=== PATIENT | male | born 2005 | race Caucasian/White ===

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

== ENCOUNTER 2024-04-28 15:06 | Emergency (ER) | payer MEDICARE, OTHER, SELFPAY ==
[2024-04-28 15:25] VITALS: BP 127/72; PULSE 140; RESP 18; TEMP 36.8; O2SAT 100; BMI 27.4
--- NOTE | 2024-04-28 15:47 | ED_ITS ---
Discharge Plan Disposition Patient Disposition: Home, Self-Care Condition: Good Prescriptions Prescriptions: No Action lisinopril 10 mg tablet See Rx Instructions .ROUTE .COMPLEX Qty: 90 3RF Dose Instruction: TAKE ONE TABLET BY MOUTH EVERY DAY Rx Instructions: TAKE ONE TABLET BY MOUTH EVERY DAY cyclobenzaprine 10 mg tablet See Rx Instructions .ROUTE .COMPLEX Qty: 30 2RF Dose Instruction: TAKE ONE TABLET BY MOUTH EVERY NIGHT AT BEDTIME MAY CAUSE DROWSINESS Rx Instructions: TAKE ONE TABLET BY MOUTH EVERY NIGHT AT BEDTIME MAY CAUSE DROWSINESS Referrals Follow up/Referrals: Makenzie Morales PA [Primary Care Provider] - See instructions Activity Restrictions/Add. Instructions Additional Instructions/Restrictions: You were evaluated in the emergency department today. It is important to note that your heart rate is still very elevated at this time. We recommended slowing the rate down and repeating an EKG to determine underlying rhythm. You elected to go home to see if it improves at home once you no longer anxious, so it is very important that you keep a close eye on your heart rate to make sure that it does not stay elevated. If it stays elevated, please return to the emergency department right away. Please follow-up closely with your primary care provider over the next 48 to 72 hours. Return to the emergency department for new or worsening symptoms, such as chest pain, shortness of breath, or other concerns. Clinical Impressions Clinical Impression: Muscular dystrophy, Leg swelling, Tachycardia Instructions Patient Instructions: DI for Dependent Edema, DI for Tachycardia Print Language Print Language: Hebrew Discharge ED Provider: Laura Acuña [facility] General Chief complaint: Skin/Abscess/Foreign Body Stated complaint: right leg redness/swelling, no accident Mode of Arrival: Ambulatory Source of Information: Patient and Parent(s) Limitations: No Limitations Time Seen by Provider: 04/28/24 15:47 Description of Symptoms (Recalled from Triage Doc. by RN): PATIENT C/O RASH TO RIGHT LEG X 2 DAYS HEENT Symptoms (Recalled from RN notes): No Resp Symptoms (Recalled from RN notes): No Skin Symptoms (Recalled from RN notes): Yes MS Symptoms (Recalled from RN notes): No Functional Status (Recalled from RN notes): WNL History of Present Illness Provider Complaint: Father states that they noticed about 2 days ago that his right leg looked swollen and had a bad rash on it States that his right leg is always been bigger than his left but more larger the last couple of days States that they wasnt sure if something may have bitten him or something States that he is wheelchair dependent nonmobile but today the discoloration seemed worse Parents worried he may be having a reaction or something Related Data Previous Rx's ?Medication ?Instructions ?Recorded lisinopril 10 mg tablet See Rx Instructions .Route 09/04/23 .COMPLEX #90 tabs cyclobenzaprine 10 mg tablet See Rx Instructions .Route 04/26/24 .COMPLEX #30 tabs Allergies Allergy/AdvReac Type Severity Reaction Status Date / Time No Known Allergies Allergy Verified 04/24/23 12:03 Worker's Comp Is this a Worker's Comp case?: No [facility] Disclaimer: The information contained in this section may have been updated after the patient was seen, as this information can be updated by other users. Medical History Hypertension Muscular dystrophy Wheelchair dependence Social History Smoking Status: Never smoker alcohol intake: never substance use type: denies use current occupational status: student Travel in the last 8 weeks: None household members: family housing: house ROS Obtained: Yes All systems reviewed & no additional complaints except as documented and Yes Systems reviewed as appropriate & no additional complaints except as documented Constitutional Constitutional: Reports system reviewed and no additional complaints, except as documented and Reports as per HPI Cardiovascular Cardiovascular: Reports system reviewed and no additional complaints, except as documented and Reports as per HPI Respiratory Respiratory: Reports system reviewed and no additional complaints, except as documented and Reports as per HPI Gastrointestinal Gastrointestingal: Reports system reviewed and no additional complaints, except as documented and as per HPI Integumentary/Breasts Skin/Breast: Reports system reviewed and no additional complaints, except as documented, Reports as per HPI and Reports other Comments: swelling, discoloration to right leg from thigh down Neurologic Neurologic: Reports system reviewed and no additional complaints, except as documented and Reports as per HPI Physical Exam General General appearance: alert and in no apparent distress Respiratory Respiratory exam: Present normal lung sounds bilaterally; Absent respiratory distress or wheezes Cardiovascular Cardiovascular exam: Present regular rate, normal rhythm and tachycardia Expanded Lower Extremity Exam Right: Upper leg exam: Present swelling and erythema (reddish purple discoloration noted that extends midthigh to ankle on lateral aspect of right leg ) Knee exam: Present swelling and erythema Lower leg exam: Present swelling and erythema Ankle exam: Present swelling and erythema Comment: Patient in wheelchair Neurological Exam Neurological exam: Present alert and oriented X3 Medical Decision Making Justino Inquiry Pt receiving controlled substance: No Justino was queried for this patient: No Vital Signs: 04/28/24 15:25 Temperature 98.3 F Temperature Source Oral Pulse Rate [Right Brachial] 140 H Respiratory Rate 18 Blood Pressure [Right Arm] 127/72 Blood Pressure Mean [Right Arm] 90 Blood Pressure Source [Right Arm] Automatic Cuff Blood Pressure Position [Right Arm] Sitting 02 Sat by Pulse Oximetry 100 Oxygen Delivery Method Room Air Lab Data 04/28/24 18:00 04/28/24 18:00 Medical Decision Narrative: Patient found to have discoloration to right lower extremity, cool to the touch patient denies pain, swelling noted father reports worse than normal will order Venous doppler and transfer patient to the ED for furhter work up and evaluation Pt confined to wheel chair and nonmobile, HR elevated 140's Patient to get venous doppler then will be moved to the ED
--- NOTE | 2024-04-28 16:00 | CA_ITS ---
FINAL REPORT TECHNIQUE: Multiple transverse and longitudinal images were performed of the right femoral-popliteal deep venous system with augmentation and compression maneuvers. CLINICAL HISTORY: redness/discoloration/edema right lower leg COMPARISON: None FINDINGS: Right lower extremity duplex ultrasound demonstrates normal flow in the deep venous system. There is no abnormal echogenicity to suggest thrombus. There is normal compression and augmentation. IMPRESSION: No evidence of visible thrombus in the right lower extremity. Reviewed, Interpreted and Dictated by Caleb Bautista MD Transcribed by Lynnette Vasquez Authenticated and [facility]
--- NOTE | 2024-04-28 16:37 | ECG_ITS ---
APPROVED REPORT Exam: Resting ECG HR:144 bpm ECG Measurements Heart Rate 144 AXES HI 155 P 83 QRSd 101 QRS 75 QT 271 T -4 QTc 354 Conclusion SINUS TACHYCARDIA, POSSIBLE ATRIAL FLUTTER INCOMPLETE RIGHT BUNDLE BRANCH BLOCK [90+ ms QRS DURATION, TERMINAL R IN V1/V2, 40+ ms S IN I/aVL/V4/V5/V6] NONSPECIFIC ST & T-WAVE ABNORMALITY ABNORMAL ECG Electronically signed by : KORY GIL, 04/28/2024 21:01:18
[2024-04-28 16:40] VITALS: BP 134/78; PULSE 144; RESP 18; TEMP 36.8; O2SAT 100; BMI 27.4
--- NOTE | 2024-04-28 16:40 | ED_ITS ---
Discharge Plan Disposition Patient Disposition: Home, Self-Care Condition: Good Prescriptions Prescriptions: No Action lisinopril 10 mg tablet See Rx Instructions .ROUTE .COMPLEX Qty: 90 3RF Dose Instruction: TAKE ONE TABLET BY MOUTH EVERY DAY Rx Instructions: TAKE ONE TABLET BY MOUTH EVERY DAY cyclobenzaprine 10 mg tablet See Rx Instructions .ROUTE .COMPLEX Qty: 30 2RF Dose Instruction: TAKE ONE TABLET BY MOUTH EVERY NIGHT AT BEDTIME MAY CAUSE DROWSINESS Rx Instructions: TAKE ONE TABLET BY MOUTH EVERY NIGHT AT BEDTIME MAY CAUSE DROWSINESS Referrals Follow up/Referrals: Makenzie Morales PA [Primary Care Provider] - See instructions Activity Restrictions/Add. Instructions Additional Instructions/Restrictions: You were evaluated in the emergency department today. It is important to note that your heart rate is still very elevated at this time. We recommended slowing the rate down and repeating an EKG to determine underlying rhythm. You elected to go home to see if it improves at home once you no longer anxious, so it is very important that you keep a close eye on your heart rate to make sure that it does not stay elevated. If it stays elevated, please return to the emergency department right away. Please follow-up closely with your primary care provider over the next 48 to 72 hours. Return to the emergency department for new or worsening symptoms, such as chest pain, shortness of breath, or other concerns. Clinical Impressions Clinical Impression: Muscular dystrophy, Leg swelling, Tachycardia Instructions Patient Instructions: DI for Dependent Edema, DI for Tachycardia Print Language Print Language: Amharic Discharge ED Provider: Laura Acuña General Adult HPI General Chief complaint: Skin/Abscess/Foreign Body Stated complaint: right leg redness/swelling, no accident Time Seen by Provider: 04/28/24 15:47 Mode of Arrival: Ambulatory Source of Information: Patient and Parent(s) Limitations: No Limitations Description of Symptoms (Recalled from ER Triage Doc. by RN): PATIENT C/O RASH TO RIGHT LEG X 2 DAYS History of Present Illness HPI narrative: This patient is a 18-year-old male with a history of muscular dystrophy, hypertension, and wheelchair dependence presenting to the emergency department for evaluation with concern for right lower extremity swelling and discoloration. This is been going on for approximately 2 days. No pain or other concerns noted. He otherwise states that he is been feeling well with no fevers, chills, chest pain, shortness of breath, or other issues. I had an interactive discussion with urgent treatment center provider who evaluated the patient initially and she noted concern for DVT given soft tissue swelling and discoloration. She also noted concerns because his heart rate was in the 140s. He states his heart rate does usually run fast but in the low 100s. Patient states that he is feeling nervous and anxious about being here, as he has not been in the hospital anytime that he can remember. Otherwise, he states he is feeling fine. Related Data Previous Rx's ?Medication ?Instructions ?Recorded lisinopril 10 mg tablet See Rx Instructions .Route 09/04/23 .COMPLEX #90 tabs cyclobenzaprine 10 mg tablet See Rx Instructions .Route 04/26/24 .COMPLEX #30 tabs Allergies Allergy/AdvReac Type Severity Reaction Status Date / Time No Known Allergies Allergy Verified 04/24/23 12:03 [facility] Disclaimer: The information contained in this section may have been updated after the patient was seen, as this information can be updated by other users. Medical History Hypertension Muscular dystrophy Wheelchair dependence Social History Smoking Status: Never smoker alcohol intake: never substance use type: denies use current occupational status: student Travel in the last 8 weeks: None household members: family housing: house ROS Obtained: Yes All systems reviewed & no additional complaints except as documented Physical Exam General General appearance: alert, in no apparent distress and anxious Comment: Sitting upright in his personal wheelchair Head Head exam: atraumatic and normocephalic Eye Eye exam: Present normal appearance, PERRL and EOMI ENT ENT exam: Present normal exam, normal oropharynx, mucous membranes moist and normal external ear exam Neck Neck exam: Present normal inspection, full ROM and trachea midline; Absent tenderness Chest Chest inspection: Present normal inspection and symmetric chest wall rise; Absent tenderness Respiratory Respiratory exam: Present normal lung sounds bilaterally; Absent respiratory distress, wheezes, stridor or accessory muscle use Cardiovascular Cardiovascular exam: Present normal rhythm and tachycardia Abdominal Exam Abdominal exam: Present soft; Absent distention, tenderness or guarding Extremities Exam Extremities exam: Present edema and other (Chronic atrophy/contractures. Right greater than left lower extremity edema. Both extremities are cool and mottled, R>L. He does have delayed capillary refill in both extremities. All compartments are soft.); Absent tenderness Back Exam Back exam: Present normal inspection and full ROM; Absent tenderness Neurological Exam Neurological exam: Present alert, oriented X3, CN II-XII intact and other (at his neurologic baseline) Psychiatric Psychiatric exam: Present anxious Skin Skin exam: Present warm, dry and mottled (BLE as above) Medical Decision Making Medical Records Medical records reviewed: Yes I reviewed the patient's medical records. Justino Inquiry Pt receiving controlled substance: No Vital Signs: 04/28/24 15:25 04/28/24 16:40 04/28/24 18:00 Temperature 98.3 F 98.3 F Temperature Source Oral Oral Pulse Rate 145 H Pulse Rate [Right Brachial] 140 H 144 H Respiratory Rate 18 18 Blood Pressure 136/89 Blood Pressure [Right Arm] 127/72 134/78 Blood Pressure Mean 99 Blood Pressure Mean [Right Arm] 90 96 Blood Pressure Source Blood Pressure Source [Right Arm] Automatic Cuff Automatic Cuff Blood Pressure Position Blood Pressure Position [Right Arm] Sitting Sitting 02 Sat by Pulse Oximetry 100 100 100 Oxygen Delivery Method Room Air Room Air 04/28/24 18:30 04/28/24 19:30 Temperature 98.8 F Temperature Source Oral Pulse Rate 138 H 130 H Pulse Rate [Right Brachial] Respiratory Rate 18 Blood Pressure 155/94 H 154/67 H Blood Pressure [Right Arm] Blood Pressure Mean 106 Blood Pressure Mean [Right Arm] Blood Pressure Source Automatic Cuff Blood Pressure Source [Right Arm] Blood Pressure Position Sitting Blood Pressure Position [Right Arm] 02 Sat by Pulse Oximetry 100 Oxygen Delivery Method Room Air Lab Data Lab results reviewed: Yes I reviewed the patient's lab results. Lab Results 04/28/24 18:00: WBC 10.0, RBC 5.07, Hgb 15.2, Hct 46.6, MCV 91.9, MCH 29.9, MCHC 32.5, RDW 13.9, Plt Count 315, MPV 7.5, Neut % (Auto) 81.4 H, Lymph % (Auto) 11.0, [place] % (Auto) 5.7, Eos % (Auto) 1.2, Baso % (Auto) 0.7, Neut # (Auto) 8.1 H, Lymph # (Auto) 1.1, [place] # (Auto) 0.6, Eos # (Auto) 0.1, Baso # (Auto) 0.1, ESR 8, PT 11.0, INR 0.98, APTT 30.5, D-Dimer < 0.25, Sodium 137, Potassium 4.4, Chloride 100, Carbon Dioxide 30, Anion Gap 11.4, BUN 10, Creatinine 0.20 L, E stimated Creat Clear 624 H, Estimated GFR 610, Est GFR ( Amer) 738, G lucose 102 H, Calcium 9.6, Magnesium 2.0, Total Bilirubin 0.4, AST 51, ALT 84 H, Alkaline Phosphatase 78, Total Creatine Kinase 827 H*, C-Reactive Protein 2.9, NT-Pro-B Natriuret Pep < 20.0, Total Protein 8.1, Albumin 4.8, Globulin 3.3 H, Albumin/Globulin Ratio 1.5, TSH 1.30, Thyroxine (T4) 14.4 H 04/28/24 18:11: Lactate 1.0 04/28/24 18:00 04/28/24 18:00 Orders (Tests/Meds): ED MEDICATIONS Discontinued Medications Generic Name Dose Route Start Last Admin Trade Name Freq PRN Reason Stop Dose Admin Lactated Ringer's 1,000 mls @ 999 mls/hr 04/28/24 16:40 04/28/24 18:09 Lactated Ringer's 1000 Ml Bag IV 04/28/24 17:40 999 mls/hr .Q1H1M ONE Administration Metoprolol Tartrate 5 mg 04/28/24 18:51 04/28/24 18:56 Metoprolol Tartrate 5mg/5ml Vial IV 04/28/24 18:52 Not Given ONCE ONE ORDERS Category Date Time Status Activated Partial Thrombo Time Stat Lab 04/28/24 18:00 Completed CK [Creatine Kinase] Stat Lab 04/28/24 18:00 Completed CRP [C-Reactive Protein] Stat Lab 04/28/24 18:00 Completed Complete Blood Count Auto Diff Stat Lab 04/28/24 18:00 Completed Comprehensive Metabolic Panel Stat Lab 04/28/24 18:00 Completed D-Dimer Stat Lab 04/28/24 18:00 Completed ESR [Erythrocyte Sedimentation Rate] Stat Lab 04/28/24 18:00 Completed Lactic Acid Stat Lab 04/28/24 18:11 Completed Magnesium Stat Lab 04/28/24 18:00 Completed NT Pro Brain Natriuretic Pep. Stat Lab 04/28/24 18:00 Completed Prothrombin Time INR Stat Lab 04/28/24 18:00 Completed T4 (Thyroxine) Stat Lab 04/28/24 18:00 Completed TSH [Thyroid Stimulating Hormone] Stat Lab 04/28/24 18:00 Completed CA venous doppler LE RT Stat Y 04/28/24 16:00 Completed ECG Data Tracing #1: I reviewed this ECG and interpreted as documented below: Sinus tachycardia with a ventricular rate of [address] changes concerning for ischemia. Incomplete right bundle branch block noted. Normal axis. ECG initial impression date: 04/28/24 ECG initial impression time: 16:38 Tracing #2: I reviewed this ECG and interpreted as documented below: Sinus tachycardia with a ventricular rate of 141 bpm. Incomplete right bundle branch block. No significant changes from prior EKG. ECG initial impression date: 04/28/24 ECG initial impression time: 18:50 Medical Decision Narrative: In summary, this patient is a 18-year-old male presenting to the Emergency Department for evaluation of r atraumatic ight lower extremity swelling and color changes. Differential diagnoses considered include but are not limited to DVT, cellulitis, venous insufficiency, rhabdo, CHF. Ruling out the most morbid conditions drove assessment. It should be noted patient's history includes muscular dystrophy and hypertension which may or may not be at goal therapy. This complicates all aspects of care by increasing patient's risk for morbidity. I reviewed patient's past medical records and noted previous evaluations by his primary care provider for his decreased mobility and hypertension in the past. I noted his heart rate is usually in the low 100s, but it is higher today in the 140s. On exam, the patient is sitting upright in his wheelchair and is resting comfortably in no acute distress. His heart rate upon initial assessment was in the 140s, however when left alone he does go down to the 110s to 120s sinus tachycardia. He leaves his feet dangling in his wheelchair and he does have findings consistent with venous insufficiency with mottling and discoloration of both of his legs. He has chronic skin changes consistent with venous insufficiency as well. Workup included CBC, CMP, ESR, CRP, lactic, CK, TSH, T4, magnesium, D-dimer, BNP, DVT ultrasound. I independently interpreted DVT ultrasound prior to the radiologist read and noted no obvious DVT. Please see their read for final interpretation. Labs were obtained that demonstrated elevated CK in the setting of muscular dystrophy, which can normally be elevated up to 10 times normal limit, so I feel that this is likely not acute. The fact that he has a normal white blood cell count, normal lactic acid, and normal renal function supports this. Labs are otherwise reassuring with no significant leukocytosis, no elevation inflammatory markers, or other concerns. He has a mildly elevated T4, but TSH is normal. I do not feel this is clinically significant. EKG x 2 demonstrated sinus tachycardia On reassessment, patient is very anxious appearing and tearful, as he does not want to be here and he had to have multiple IV sticks to obtain labs. He states that he just wants to go home. I advised him that his heart rate is still very high and we do not have a reason for this. Despite getting a liter bolus of IV fluids, his heart rate did not come down. Advised that it would be safest if we could give him a dose of medication to try and slow his heart rate down and get a repeat EKG to determine underlying rhythm, as it is possible he could have atrial flutter that we are dismissing on his EKG given that his rate is so fast. He states that he believes his heart rate is up because he is anxious and just wants to go home. He and his parents stated that they would keep an eye on his heart rate at home, as they have a pulse oximeter to watch this. I advised that if his heart rate continues to stay high, it is very high risk to him and could lead to issues such as heart failure. I advised that they come back right away if his heart rate remains significantly elevated at home when he is comfortable and not anxious. They expressed understanding and agreement and stated that they would keep a very close eye on it. Patient was deemed to be appropriate for discharge. Patient directed discharge at this time after thorough discussion with his family. Strict return precautions were given as well as instructions for close outpatient follow-up. The patient was discharged after all questions were answered. Critical Care Critical Care Time Critical Care Time: No
[2024-04-28 18:00] VITALS: BP 136/89; PULSE 145; O2SAT 100
[2024-04-28] MEDS: LACTATED RINGERS 1000ML 1,000 ML 999 ML IV (18:09)
[2024-04-28 18:19] LABS: Basophils # 0.1 K/mm3 (0-0.2); Basophils % 0.7 % (0.1-2.0); Eosinophils # 0.1 K/mm3 (0.0-0.4); Eosinophils % 1.2 % (0.1-12.0); Hematocrit 46.6 % (42.0-52.0); Hemoglobin 15.2 g/dL (14.1-18.0); Lymphocytes # 1.1 K/mm3 (0.7-4.5); Mean Corpuscular HGB Conc 32.5 g/dL (31.8-35.4); Mean Corpuscular Hemoglobin 29.9 pg (27.0-31.2); Mean Corpuscular Volume 91.9 fl (80-94); Mean Platelet Volume 7.5 fl (7.4-10.4); Monocytes # 0.6 K/mm3 (0.1-1.0); Monocytes % 5.7 % (1.7-9.3); Neutrophils # 8.1 K/mm3 (1.8-7.8); Neutrophils % 81.4 % (37.0-80.0); Platelet Count 315 K/mm3 (142-424); Red Blood Count 5.07 M/mm3 (4.60-6.20); Red Cell Distribution Width 13.9 % (11.5-17.5)
[2024-04-28 18:20] LABS: Activated Partial Thrombo Time 30.5 seconds (22.8-30.6); INR 0.98 (0.9-1.1)
[2024-04-28 18:23] LABS: Alanine Aminotransferase 84 U/L (12-78); Albumin Level 4.8 g/dl (3.5-5.0); Albumin/Globulin Ratio 1.5 (1.1-1.8); Alkaline Phosphatase 78 U/L (38-126); Anion Gap 11.4 mEq/L (5-15); Aspartate Amino Transferase 51 U/L (17-59); Bilirubin,Total 0.4 mg/dl (0.2-1.3); Blood Urea Nitrogen 10 mg/dl (9-20); Calcium 9.6 mg/dl (8.4-10.2); Carbon Dioxide 30 mmol/L (22.0-30.0); Chloride 100 mmol/L (98-107); Creatine Kinase 827 U/L (55-170); Creatinine Clearance Estimated 624 mL/min (50-200); Estimated Glomerular Filt Rate 610 ml/min (>60); GFR (African American) 738 ML/MIN (>60); Globulin 3.3 g/dL (1.3-3.2); Glucose 102 mg/dl (74-100); Potassium 4.4 mmoL/L (3.5-5.1); Sodium 137 mmol/L (136-145); Total Protein,Serum 8.1 g/dl (6.3-8.2)
[2024-04-28 18:30] VITALS: BP 155/94; PULSE 138; O2SAT 100
[2024-04-28 18:30] LABS: C-Reactive Protein 2.9 mg/L (0-4)
[2024-04-28 18:38] LABS: NT Pro Brain Natriuretic Pep. < 20.0 pg/mL (0-125)
[2024-04-28 18:43] LABS: D-Dimer < 0.25 ug/mL (0.0-0.5)
[2024-04-28 18:45] LABS: T4 (Thyroxine) 14.4 ug/dl (5.53-11.0)
--- NOTE | 2024-04-28 18:49 | ECG_ITS ---
APPROVED REPORT Exam: Resting ECG HR:141 bpm ECG Measurements Heart Rate 141 AXES TX 100 P 41 QRSd 100 QRS 78 QT 344 T -2 QTc 426 Conclusion SINUS TACHYCARDIA WITH SHORT TX INTERVAL, POSSIBLE ATRIAL FLUTTER INCOMPLETE RIGHT BUNDLE BRANCH BLOCK [90+ ms QRS DURATION, TERMINAL R IN V1/V2, 40+ ms S IN I/aVL/V4/V5/V6] ST DEVIATION AND MODERATE T-WAVE ABNORMALITY, CONSIDER ANTERIOR ISCHEMIA [-0.1+ mV T-WAVE IN V3/V4] ABNORMAL ECG Electronically signed by : KORY GIL, 04/28/2024 21:01:10
[2024-04-28 19:09] LABS: Erythrocyte Sedimentation Rate 8 mm/hr (0-15)
[2024-04-28 19:30] VITALS: BP 154/67; PULSE 130; RESP 18; TEMP 37.1; O2SAT 98
== END 2024-04-28 19:31 | disposition home or self-care (01) ==
LOC: UTC 15:53 → ER 16:16
PROVIDERS: Emergency Provider Emergency Medicine; PCP Physician Assistant
DX: R00.0 Tachycardia, unspecified (principal); R22.41 Localized swelling, mass and lump, right lower limb; L98.9 Disorder of the skin and subcutaneous tissue, unspecified; G71.00 Muscular dystrophy, unspecified; I10 Essential (primary) hypertension
CPT/HCPCS: 80053; 82550; 83605; 83735; 83880; 84436; 84443; 85025; 85378; 85610; 85651; 85730; 86140; 93005; 93971; 96361; 96374; 99285; J7120